=== PATIENT | female | born 1980 | race African-American/Black ===

== ENCOUNTER 2020-11-14 20:59 | Emergency (ER) | payer BC ==
[2020-11-14] MEDS ORDERED: Dexamethasone 4 MG TAB ONE (21:27)
[2020-11-14] MEDS ORDERED: Ondansetron ODT 4 MG TAB ONE (21:27)
== END 2020-11-14 21:34 | disposition home or self-care (01) ==
LOC: MADERS 20:59
DX: U07.1 COVID-19 (principal); E11.9 Type 2 diabetes mellitus without complications; Z79.4 Long term (current) use of insulin
CPT/HCPCS: 99284; J8540; Q0162